=== PATIENT | female | born 1960 | race Two or more races ===

== ENCOUNTER 2024-12-19 10:56 | Outpatient (AMB) | payer MEDICAID, SELFPAY ==
--- NOTE | 2024-12-19 11:12 | PD.ORTHCLVIS ---
Vital signs 12/19/24 11:15 Height 1.68 m Height Method Stated Weight 123.405 kg Weight Measurement Method Standing Scale BMI 43.7 BP 113/69 Blood Pressure Source Automatic Cuff Blood Pressure Location Left Upper Arm Position Sitting Respiration 19 Pulse 78 Pulse Source Monitor Temp 97.4 F Temp Source Temporal Artery Scan Pulse Oximetry (%) 94 L Oxygen Delivery Method Room Air Med/Allergies Allergies & Medications Allergies No Known Allergies Allergy (Verified 12/19/24 11:16) Medication Reconciliation atorvastatin 20 mg tablet 20 mg PO QDAY 09/22/22 [History Confirmed 12/19/24] carvedilol 3.125 mg tablet (Coreg) 3.125 mg PO BID 09/22/22 [History Confirmed 12/19/24] cholecalciferol (vitamin D3) 50 mcg (2,000 unit) tablet (Vitamin D3) 50 mcg PO QDAY 09/22/22 [History Confirmed 12/19/24] gabapentin 300 mg capsule 300 mg PO QDAY 09/22/22 [History Confirmed 12/19/24] isosorbide mononitrate 10 mg tablet 10 mg PO DAILY 09/22/22 [History Confirmed 12/19/24] losartan 100 mg tablet 100 mg PO QDAY 09/22/22 [History Confirmed 12/19/24] meloxicam 15 mg tablet 15 mg PO QDAY 09/22/22 [History Confirmed 12/19/24] Exam Exam Patient is in no acute distress and is cooperative with the examination today. Patient has a normal mood and affect. Breathing is nonlabored. In no respiratory distress. Bilateral extremities were evaluated and demonstrates sensation intact to light touch. Palpable pedal pulses are present. No significant edema is present. Right knee incision is clean dry intact. Range of motion 0 to 110 degrees. Her left knee is tender to palpation medially. Range of motion 0 to 105 degrees. Knee feels stable varus valgus stress as well as AP translation. There is marked varus deformity X-rays demonstrate a cemented right total knee replacement in good alignment and position. The left knee demonstrates [id number] arthritis with complete joint space obliteration and varus deformity. Assessment and Plan Problem List (1) History of total right knee replacement: Status: Acute (2) Arthritis of left knee: Status: Acute Plan Patient is a [id number] female with bilateral knee pain with zitc-[id number] arthritis on the left. She has failed conservative treatment. We discussed total knee replacement is a reasonable option. He has tried injections, anti-inflammatories, and physical therapy. She has tried to lose weight and her weight is stable. She is done well with the last knee replacement The nature and purpose of the total knee replacement, alternative method(s) of treatment, the material risks involved, and the possibility of complications were fully explained to the patient. The patient does NOT have any of the following contraindications to TKA: - Active infection of the knee joint, OR - Active systemic bacteremia, OR - Active skin infection or open wound at surgical site, OR - Neuropathic arthritis, OR - Severe, rapidly progressive neurological disease, OR - Severe medical condition that makes risks of surgery outweigh the potential benefit The patient was told the most common risks and complications associated with a total knee replacement include, but are not limited to: blood clots in the leg, fatal pulmonary embolism, dislocation of the prosthesis, intraoperative and postoperative fractures of the femur or tibia, infection, failure of the prosthesis or grafting materials, complications from anesthesia, reactions to blood transfusions, postoperative leg length inequality, instability of the knee replacement, nerve damage or injury, vascular injury, delayed wound healing, infection, other injury or even . In addition, there are risks associated with anesthesia given during this operation. Also, the patient was told that after undergoing a total knee replacement there may still be persistent pain or disability. The patient was informed that the success of this operation in part depends upon the mechanical devices which are going to be implanted and that these devices can fail or malfunction, and may need to be repaired or replaced and there are no guarantees as to the longevity of this device or its parts and that it or its parts could fail prematurely. The patient was also notified that during the course of surgery, there may be a need to use bone graft from donors, and that any bone graft used will be carefully screened for communicable diseases, including AIDS, hepatitis, Ty-Creutzfeldt, or other diseases, but despite the screening procedures, there is a small chance that they could contract one of these diseases. Finally, the patient was asked to follow completely and fully with all advice and recommended treatments, and that recovery and ultimate outcome are affected by their compliance with recommended treatment. We discussed the risks, benefits and treatment alternatives, and the patient is interested in proceeding with surgery. We will try to set this up as expeditiously as possible. Office Procedures GNS Level of Care Nursing/Assessment Patient Status: Established Patient Nursing Assessment/Reassesment: Medication Reconciliation, Update PMH in EMR and Vital Signs Coordination of Care: Complex Care and Chronic Disease 1-5, Education Complex Pt/Fam, Consent,records obtained, informed consent, Results/Orders obtained and Staff clarify orders Special Needs: Language special needs Established Patient Charge Established Patient Point Assignment: 95 Established Patient Point Charge: EP Level 3 (80-115) MA Intake Visit Data Collection New Patient or Established: Established Patient (seen at [facility] within 3 years) Reason for Visit:: REQ LEFT KNEE SX Seen by Clinical Staff ONLY (RN/MA): 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 PCP or OBGYN visit in last 3 months: Yes Hx Now: No Do You Feel Safe at Home: Yes Authorities Contacted: N/A Questionairres Past Medical History Past Medical History Have you ever been diagnosed with any of the following: Neurological Problems Seizures: No Cardiology Problems Congestive Heart Failure: No Hypertension: Yes Hypotension: Yes Respiratory Problems Chronic Obstructive Pulmonary Disease (COPD): No Smoking: No Smoking Exposure: No Genital/Urinary Problems Renal Disease: No Reproductive Problems Previous Pregnancies: Yes Musculoskeletal Problems Arthritis: Yes (knee) Endocrine Problems Diabetes Mellitus Type 1: No Diabetes Mellitus Type 2: No Other Problems Blood Transfusions: No Blood Transfusion Reaction: No Anesthesia Reactions: No MRSA: No Clostridium Difficile: No Cancer: No Subjective Visit Visit for: follow up visit and knee Immunization / Flu Flu Vaccine in the Last 12 Months: No Flu Vaccine Exclusion Criteria: No Exclusion Criteria History of Present Illness Chief complaint: Left knee pain Susan is a pleasant 63-year-old female with a prior right total knee replacement with significant left knee pain. This been ongoing for several years. We recently set her up for surgery but she had to go to [place] for prolonged period of time. She is now back. She has had multiple injections in her left knee as well as Anti-inflammatories and physical therapy. She reports the left knee pain is affecting her quality life and happiness. She has failed conservative treatment at this point Pain Pain level (0-10): 5 Pain duration: COMES AND GOES Pain location: inside (medial), outside (lateral), anterior and posterior Pain quality: dull and aching Pain timing: increases with activity Associated signs & symptoms: none Ambulatory data Ambulatory device: none Treatments Improvement with previous injections: No Improvement with PT: No Improvement with NSAIDS: no Review of Systems Review of Systems: All systems negative unless otherwise noted in HPI.
[2024-12-19 11:15] VITALS: BP 113/69; PULSE 78; RESP 19; TEMP 36.3; O2SAT 94; BMI 43.7
== END 2024-12-19 11:31 | disposition home or self-care (01) ==
LOC: HODSRG 10:56
PROVIDERS: Supervising Provider Orthopaedic Surgery Adult Reconstructive Orthopaedic Surgery; Visit Provider Orthopaedic Surgery Adult Reconstructive Orthopaedic Surgery
DX: Z96.651 Presence of right artificial knee joint (principal); M17.12 Unilateral primary osteoarthritis, left knee; M25.562 Pain in left knee; M25.561 Pain in right knee; I10 Essential (primary) hypertension
CPT/HCPCS: 99213; G0463

== ENCOUNTER 2025-03-01 08:58 | Outpatient (AMB) | payer MEDICAID, SELFPAY ==
--- NOTE | 2025-03-01 09:04 | ORTHONT_ITS ---
Vital signs 03/01/25 09:31 Height 1.68 m Height Method Measured Weight 116.63 kg Weight Measurement Method Standing Scale BMI 41.3 BP 128/70 Blood Pressure Source Automatic Cuff Blood Pressure Location Left Upper Arm Position Sitting Respiration 18 Pulse 71 Pulse Source Monitor Temp 97.9 F Temp Source Temporal Artery Scan Pulse Oximetry (%) 97 Oxygen Delivery Method Room Air Med/Allergies Allergies & Medications Allergies No Known Allergies Allergy (Verified 03/01/25 09:38) Medication Reconciliation atorvastatin 20 mg tablet 20 mg PO QDAY 09/22/22 [History Confirmed 03/01/25] carvedilol 3.125 mg tablet (Coreg) 3.125 mg PO BID 09/22/22 [History Confirmed 03/01/25] cholecalciferol (vitamin D3) 50 mcg (2,000 unit) tablet (Vitamin D3) 50 mcg PO QDAY 09/22/22 [History Confirmed 03/01/25] gabapentin 300 mg capsule 300 mg PO QDAY 09/22/22 [History Confirmed 03/01/25] isosorbide mononitrate 10 mg tablet 10 mg PO DAILY 09/22/22 [History Confirmed 03/01/25] losartan 100 mg tablet 100 mg PO QDAY 09/22/22 [History Confirmed 03/01/25] meloxicam 15 mg tablet 15 mg PO QDAY 09/22/22 [History Confirmed 03/01/25] Exam Exam Patient is in no acute distress and is cooperative with the examination today. Patient has a normal mood and affect. Breathing is nonlabored. In no respiratory distress. Bilateral extremities were evaluated and demonstrates sensation intact to light touch. Palpable pedal pulses are present. No significant edema is present. Right knee incision is clean dry intact. Range of motion 0 to 110 degrees. Her left knee is tender to palpation medially. Range of motion 0 to 105 degrees. Knee feels stable varus valgus stress as well as AP translation. There is marked varus deformity X-rays demonstrate a cemented right total knee replacement in good alignment and position. The left knee demonstrates zwbb-ga-[id number] arthritis with complete joint space obliteration and varus deformity. Assessment and Plan Problem List (1) History of total right knee replacement: Status: Acute (2) Arthritis of left knee: Status: Acute Plan Patient is a [id number] female with bilateral knee pain with cdkv-pj-[id number] arthritis on the left. She has failed conservative treatment. We discussed total knee replacement is a reasonable option. He has tried injections, anti-inflammatories, and physical therapy. She has done well with the last knee replacement. She has lost 15 pounds since we last saw her. The nature and purpose of the total knee replacement, alternative method(s) of treatment, the material risks involved, and the possibility of complications were fully explained to the patient. The patient does NOT have any of the following contraindications to TKA: - Active infection of the knee joint, OR - Active systemic bacteremia, OR - Active skin infection or open wound at surgical site, OR - Neuropathic arthritis, OR - Severe, rapidly progressive neurological disease, OR - Severe medical condition that makes risks of surgery outweigh the potential benefit The patient was told the most common risks and complications associated with a total knee replacement include, but are not limited to: blood clots in the leg, fatal pulmonary embolism, dislocation of the prosthesis, intraoperative and postoperative fractures of the femur or tibia, infection, failure of the prosthesis or grafting materials, complications from anesthesia, reactions to blood transfusions, postoperative leg length inequality, instability of the knee replacement, nerve damage or injury, vascular injury, delayed wound healing, infection, other injury or even . In addition, there are risks associated with anesthesia given during this operation. Also, the patient was told that after undergoing a total knee replacement there may still be persistent pain or disability. The patient was informed that the success of this operation in part depends upon the mechanical devices which are going to be implanted and that these devices can fail or malfunction, and may need to be repaired or replaced and there are no guarantees as to the longevity of this device or its parts and that it or its parts could fail prematurely. The patient was also notified that during the course of surgery, there may be a need to use bone graft from donors, and that any bone graft used will be carefully screened for communicable diseases, including AIDS, hepatitis, Ty-Creutzfeldt, or other diseases, but despite the screening procedures, there is a small chance that they could contract one of these diseases. Finally, the patient was asked to follow completely and fully with all advice and recommended treatments, and that recovery and ultimate outcome are affected by their compliance with recommended treatment. We discussed the risks, benefits and treatment alternatives, and the patient is interested in proceeding with surgery. We will try to set this up as expeditiously as possible. Office Procedures GNS Level of Care Nursing/Assessment Patient Status: Established Patient Nursing Assessment/Reassesment: Medication Reconciliation, Update PMH in EMR and Vital Signs Coordination of Care: Complex Care and Chronic Disease 1-5, Education Complex Pt/Fam, Consent,records obtained, informed consent, Lab and Imaging orders, Results/Orders obtained and Staff clarify orders Special Needs: Language special needs Established Patient Charge Established Patient Point Assignment: 110 Established Patient Point Charge: EP Level 3 (80-115) MA Intake Visit Data Collection New Patient or Established: Established Patient (seen at [facility] within 3 years) Reason for Visit:: REQ LEFT KNEE SX Seen by Clinical Staff ONLY (RN/MA): No 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 PCP or OBGYN visit in last 3 months: Yes Hx Now: No Do You Feel Safe at Home: Yes Authorities Contacted: N/A Questionairres Past Medical History Past Medical History Have you ever been diagnosed with any of the following: Neurological Problems Seizures: No Cardiology Problems Congestive Heart Failure: No Hypertension: Yes Hypotension: Yes Respiratory Problems Chronic Obstructive Pulmonary Disease (COPD): No Smoking: No Smoking Exposure: No Genital/Urinary Problems Renal Disease: No Reproductive Problems Previous Pregnancies: Yes Musculoskeletal Problems Arthritis: Yes (knee) Endocrine Problems Diabetes Mellitus Type 1: No Diabetes Mellitus Type 2: No Other Problems Blood Transfusions: No Blood Transfusion Reaction: No Anesthesia Reactions: No MRSA: No Clostridium Difficile: No Cancer: No Subjective Visit Visit for: follow up visit and knee Immunization / Flu Flu Vaccine in the Last 12 Months: No Flu Vaccine Exclusion Criteria: No Exclusion Criteria History of Present Illness Chief complaint: Left knee pain Susan is a pleasant 63-year-old female with a prior right total knee replacement with significant left knee pain. This been ongoing for several years. We recently set her up for surgery but she had to go to [place] for prolonged period of time. She is now back. She has had multiple injections in her left knee as well as Anti-inflammatories and physical therapy. She reports the left knee pain is affecting her quality life and happiness. She has failed conservative treatment at this point Pain Pain level (0-10): 5 Pain duration: COMES AND GOES Pain location: inside (medial), outside (lateral), anterior and posterior Pain quality: dull and aching Pain timing: increases with activity Associated signs & symptoms: none Ambulatory data Ambulatory device: none Treatments Improvement with previous injections: No Improvement with PT: No Improvement with NSAIDS: no Review of Systems Review of Systems: All systems negative unless otherwise noted in HPI.
[2025-03-01 09:31] VITALS: BP 128/70; PULSE 71; RESP 18; TEMP 36.6; O2SAT 97; BMI 41.3
--- NOTE | 2025-03-01 09:33 | XR_ITS ---
Examination: Bilateral knees 2 views Right lateral knee left lateral knee 2 views Bilateral axial knees single view TECHNIQUE: Bilateral AP knees standing single view, bilateral PA knees standing flexion single view Standing right lateral knee left lateral knee 2 views Bilateral axial knees single view total 5 views Date and time: March 01, 2025 1006 hours INDICATIONS: Bilateral knee pain 10 years. LUNGS: Moderate osteopenia. Total right knee arthroplasty. Satisfactory alignment. No loosening of the prosthetic components. Advanced left knee tricompartment osteoarthritis including severe narrowing medial joint space and severe osteoarthritis patellofemoral joint IMPRESSION: Advanced left knee tricompartment osteoarthritis including severe narrowing medial joint space
== END 2025-03-01 09:39 | disposition home or self-care (01) ==
LOC: HODSRG 08:58
PROVIDERS: Supervising Provider Orthopaedic Surgery Adult Reconstructive Orthopaedic Surgery; Visit Provider Orthopaedic Surgery Adult Reconstructive Orthopaedic Surgery
DX: M17.12 Unilateral primary osteoarthritis, left knee (principal); Z96.651 Presence of right artificial knee joint; M25.562 Pain in left knee
CPT/HCPCS: 73564; 99213; G0463

== ENCOUNTER 2025-03-22 13:57 | Outpatient (AMB) | payer MEDICAID, SELFPAY ==
--- NOTE | 2025-03-22 14:07 | PD.ORTHCLVIS ---
Vital signs 03/22/25 14:09 Height 1.68 m Height Method Measured Weight 114.901 kg Weight Measurement Method Standing Scale BMI 40.7 BP 134/80 H Blood Pressure Source Automatic Cuff Blood Pressure Location Left Upper Arm Position Sitting Respiration 18 Pulse 70 Pulse Source Monitor Temp 97.5 F Temp Source Temporal Artery Scan Pulse Oximetry (%) 96 Oxygen Delivery Method Room Air Med/Allergies Allergies & Medications Allergies No Known Allergies Allergy (Verified 03/22/25 14:09) Medication Reconciliation atorvastatin 20 mg tablet 20 mg PO QDAY 09/22/22 [History Confirmed 03/22/25] carvedilol 3.125 mg tablet (Coreg) 3.125 mg PO BID 09/22/22 [History Confirmed 03/22/25] cholecalciferol (vitamin D3) 50 mcg (2,000 unit) tablet (Vitamin D3) 50 mcg PO QDAY 09/22/22 [History Confirmed 03/22/25] gabapentin 300 mg capsule 300 mg PO QDAY 09/22/22 [History Confirmed 03/22/25] isosorbide mononitrate 10 mg tablet 10 mg PO DAILY 09/22/22 [History Confirmed 03/22/25] losartan 100 mg tablet 100 mg PO QDAY 09/22/22 [History Confirmed 03/22/25] meloxicam 15 mg tablet 15 mg PO QDAY 09/22/22 [History Confirmed 03/22/25] Exam Exam Patient is in no acute distress and is cooperative with the examination today. Patient has a normal mood and affect. Breathing is nonlabored. In no respiratory distress. Bilateral extremities were evaluated and demonstrates sensation intact to light touch. Palpable pedal pulses are present. No significant edema is present. Right knee incision is clean dry intact. Range of motion 0 to 110 degrees. Her left knee is tender to palpation medially. Range of motion 0 to 105 degrees. Knee feels stable varus valgus stress as well as AP translation. There is marked varus deformity X-rays demonstrate a cemented right total knee replacement in good alignment and position. The left knee demonstrates gfoa-fg-ulsu arthritis with complete joint space obliteration and varus deformity. Assessment and Plan Problem List (1) History of total right knee replacement: Status: Acute (2) Arthritis of left knee: Status: Acute Plan Patient is a -zdeh-fuu female with bilateral knee pain with jvjw-nj-wjeh arthritis on the left. She has failed conservative treatment. We discussed total knee replacement is a reasonable option. He has tried injections, anti-inflammatories, and physical therapy. She has done well with the last knee replacement. She has lost 15 pounds since we last saw her. The nature and purpose of the total knee replacement, alternative method(s) of treatment, the material risks involved, and the possibility of complications were fully explained to the patient. The patient does NOT have any of the following contraindications to TKA: - Active infection of the knee joint, OR - Active systemic bacteremia, OR - Active skin infection or open wound at surgical site, OR - Neuropathic arthritis, OR - Severe, rapidly progressive neurological disease, OR - Severe medical condition that makes risks of surgery outweigh the potential benefit The patient was told the most common risks and complications associated with a total knee replacement include, but are not limited to: blood clots in the leg, fatal pulmonary embolism, dislocation of the prosthesis, intraoperative and postoperative fractures of the femur or tibia, infection, failure of the prosthesis or grafting materials, complications from anesthesia, reactions to blood transfusions, postoperative leg length inequality, instability of the knee replacement, nerve damage or injury, vascular injury, delayed wound healing, infection, other injury or even . In addition, there are risks associated with anesthesia given during this operation. Also, the patient was told that after undergoing a total knee replacement there may still be persistent pain or disability. The patient was informed that the success of this operation in part depends upon the mechanical devices which are going to be implanted and that these devices can fail or malfunction, and may need to be repaired or replaced and there are no guarantees as to the longevity of this device or its parts and that it or its parts could fail prematurely. The patient was also notified that during the course of surgery, there may be a need to use bone graft from donors, and that any bone graft used will be carefully screened for communicable diseases, including AIDS, hepatitis, Ty-Creutzfeldt, or other diseases, but despite the screening procedures, there is a small chance that they could contract one of these diseases. Finally, the patient was asked to follow completely and fully with all advice and recommended treatments, and that recovery and ultimate outcome are affected by their compliance with recommended treatment. We discussed the risks, benefits and treatment alternatives, and the patient is interested in proceeding with surgery. We will try to set this up as expeditiously as possible. Office Procedures GNS Level of Care Nursing/Assessment Patient Status: Established Patient Nursing Assessment/Reassesment: Medication Reconciliation, Update PMH in EMR and Vital Signs Coordination of Care: Complex Care and Chronic Disease 1-5, Education Complex Pt/Fam, Consent,records obtained, informed consent, Results/Orders obtained and Staff clarify orders Established Patient Charge Established Patient Point Assignment: 95 Established Patient Point Charge: EP Level 3 (80-115) MA Intake Visit Data Collection New Patient or Established: Established Patient (seen at [facility] within 3 years) Reason for Visit:: PRE OP LEFT TKA Seen by Clinical Staff ONLY (RN/MA): No Employee Relations Consultant Required: No PCP or OBGYN visit in last 3 months: Yes Hx Now: No Do You Feel Safe at Home: Yes Authorities Contacted: N/A Questionairres Past Medical History Past Medical History Have you ever been diagnosed with any of the following: Neurological Problems Seizures: No Cardiology Problems Congestive Heart Failure: No Hypertension: Yes Hypotension: Yes Respiratory Problems Chronic Obstructive Pulmonary Disease (COPD): No Smoking: No Smoking Exposure: No Genital/Urinary Problems Renal Disease: No Reproductive Problems Previous Pregnancies: Yes Musculoskeletal Problems Arthritis: Yes (knee) Endocrine Problems Diabetes Mellitus Type 1: No Diabetes Mellitus Type 2: No Other Problems Blood Transfusions: No Blood Transfusion Reaction: No Anesthesia Reactions: No MRSA: No Clostridium Difficile: No Cancer: No Subjective Visit Visit for: follow up visit and knee Immunization / Flu Flu Vaccine in the Last 12 Months: No Flu Vaccine Exclusion Criteria: No Exclusion Criteria History of Present Illness Chief complaint: Left knee pain Susan is a pleasant 63-year-old female with a prior right total knee replacement with significant left knee pain. This been ongoing for several years. We recently set her up for surgery but she had to go to [place] for prolonged period of time. She is now back. She has had multiple injections in her left knee as well as Anti-inflammatories and physical therapy. She reports the left knee pain is affecting her quality life and happiness. She has failed conservative treatment at this point Personal History Red flag PMH: none BMI Counceling provided: Yes Pain Pain level (0-10): 8 Pain duration: COMES AND GOES Pain location: inside (medial), outside (lateral), anterior and posterior Pain quality: dull and aching Pain timing: increases with activity Associated signs & symptoms: none Ambulatory data Ambulatory device: none Treatments Improvement with previous injections: No Improvement with PT: No Improvement with NSAIDS: no Review of Systems Review of Systems: All systems negative unless otherwise noted in HPI.
[2025-03-22 14:09] VITALS: BP 134/80; PULSE 70; RESP 18; TEMP 36.4; O2SAT 96; BMI 40.7
== END 2025-03-22 14:38 | disposition home or self-care (01) ==
LOC: HODSRG 13:57
PROVIDERS: PCP Nurse Practitioner Family; Referring Provider Nurse Practitioner Family; Supervising Provider Orthopaedic Surgery Adult Reconstructive Orthopaedic Surgery; Visit Provider Orthopaedic Surgery Adult Reconstructive Orthopaedic Surgery
DX: Z96.651 Presence of right artificial knee joint (principal); M17.12 Unilateral primary osteoarthritis, left knee; M25.562 Pain in left knee; I10 Essential (primary) hypertension
CPT/HCPCS: 99213; G0463

== ENCOUNTER → 2025-03-22 | Outpatient (CLI) | payer MEDICAID, SELFPAY ==
--- NOTE | 2025-03-22 13:00 | XR_ITS ---
Examination: CT left lower extremity, without contrast. 2-D sagittal reconstructions. 2-D coronal reconstructions. 3-D reconstructions. Date and time of exam:March 22, 2025 1534 hours INDICATIONS: Diagnosis unilateral primary osteoarthritis left knee, left knee pain 10 years CTDI: vol (mGy):13.9 DLP: (mGycm):1053 Technique: Multiple 1.25 mm axial sections of the left lower extremity without intravenous contrast have been obtained. 2-D sagittal and coronal reconstructions have been obtained. 3-D reconstructions have been obtained. Low dose protocols were performed. One or more of the following dose reduction techniques were used; automated exposure control, adjustment of the mA and/or KV according to patient size, use of iterative reconstruction technique. Findings: Severe osteopenia Moderate narrowing left hip joint No left hip fracture or dislocation Severe left knee tricompartment osteoarthritis No fractures No avascular necrosis IMPRESSION: Severe left knee tricompartment osteoarthritis
== END | disposition home or self-care (01) ==
LOC: CCTX 13:17
PROVIDERS: PCP Family Medicine; Referring Provider Orthopaedic Surgery Adult Reconstructive Orthopaedic Surgery; Visit Provider Orthopaedic Surgery Adult Reconstructive Orthopaedic Surgery
DX: M17.12 Unilateral primary osteoarthritis, left knee (principal)
CPT/HCPCS: 73700

== ENCOUNTER 2025-04-09 05:45 | Day surgery (SDC) | payer MEDICAID, SELFPAY ==
--- NOTE | 2025-04-04 06:00 | EKG_ITS ---
[facility] Test Date: 2025-04-04 Pat Name: LEIGHTON LEMOS Department: Room: - Gender: Female Outsole Splicer: FRANCOIS : 1960 Requested By: Jourdan Scott Order Number: [id number] Reading MD: Jourdan Scott Measurements Intervals [place] Rate: 60 P: 19 NH: 168 QRS: -4 QRSD: 90 T: 17 QT: 422 QTc: 423 Interpretive Statements SINUS RHYTHM LOW QRS VOLTAGE IN PRECORDIAL LEADS [QRS DEFLECTION < 1.0 mV IN CHEST LEADS] Compared to ECG 09/22/2022 09:38:49 No significant changes /store/S0/[id number]/[id number].pdf
[2025-04-04 07:41] VITALS: BMI 39.9
[2025-04-04 09:01] LABS: Basophils # (Auto) 0.0 Thou/mm3 (0.0-0.2); Basophils % (Auto) 1 % (0-2.5); Eosinophils # (Auto) 0.3 Thou/mm3 (0.0-0.5); Eosinophils % (Auto) 4 % (0-10); Hematocrit 42.5 % (36.0-46.0); Hemoglobin 14.1 g/dL (12.0-16.0); Immature Granulocytes Auto 0.01 Thou/mm3 (0.00-0.00); Lymphocytes # (Auto) 2.3 Thou/mm3 (1.0-4.8); Lymphocytes % (Auto) 37 % (10-50); Mean Corpuscular HGB Conc 33.2 g/dl (31.0-37.0); Mean Corpuscular Hemoglobin 29.8 pg (25.0-35.0); Mean Corpuscular Volume 90 fL (80-100); Monocytes # (Auto) 0.5 Thou/mm3 (0.0-0.8); Monocytes % (Auto) 7 % (0-12); Neutrophils # (Auto) 3.2 Thou/mm3 (1.8-7.7); Neutrophils % (Auto) 51 % (37-80); Nucleated Red Blood Cell # 0.00 Thou/mm3 (0.00-0.00); Nucleated Red Blood Cell % 0 /100 WBC (0); Platelet Count 228 Thou/mm3 (140-440); RDW Standard Deviation 42.1 fL (36.4-46.3); Red Blood Count 4.73 Miln/mm3 (4.00-5.20); White Blood Count 6.2 Thou/mm3 (3.6-11.0)
[2025-04-04 09:14] LABS: INR 1.0 (0.9-1.3); Partial Thromboplastin Time 27.3 Seconds (22.0-36.0); Prothrombin Time 11.4 Seconds (9.0-12.2)
[2025-04-04 09:19] LABS: Alanine Aminotransferase 25 U/L (10-49); Albumin, Serum 4.2 gm/dL (3.4-4.8); Albumin/Globulin Ratio 1.6 (1.2-2.2); Alkaline Phosphatase 91 U/L (46-116); Anion Gap 9 (7-16); Aspartate Amino Transferase 20 U/L (0-34); BUN/Creatinine Ratio 15 Ratio (12-20); Bilirubin,Total 0.9 mg/dL (0.3-1.2); Blood Urea Nitrogen 12 mg/dL (9-23); Calcium 9.9 mg/dL (8.3-10.6); Calcium (Corrected) 9.9 mg/dL (8.5-10.1); Carbon Dioxide 28.0 mMol/L (20.0-31.0); Chloride 108 mMol/L (98-107); Creatinine (Component) 0.8 mg/dL (0.6-1.3); Estimated Creatinine Clearance 93.4 mL/min (>60); Globulin 2.7 gm/dL (2.3-3.5); Glucose 109 mg/dL (74-106); Osmolality,Calculated 289 (275-295); Potassium 4.2 mMol/L (3.4-5.1); Sodium 145 mMol/L (136-145); Total Protein 6.9 gm/dL (5.7-8.2); eGFR > 60 See Note
[2025-04-09] VITALS (14 sets, daily range): BP systolic 121–159; BP diastolic 68–92; PULSE 56–88; RESP 13–20; TEMP 36.1–36.7; O2SAT 95–100; BMI 40.1
[2025-04-09] MEDS: MELOXICAM 7.5 MG TABLET PO (06:18)
[2025-04-09] MEDS: PREGABALIN 75 MG CAPSULE PO (06:19)
[2025-04-09] MEDS: ACETAMINOPHEN 325 MG TABLET 650 MG PO (06:19)
[2025-04-09] MEDS: RINGERS LACTATED 1000 ML 1,000 ML 20 ML IV (06:20)
--- NOTE | 2025-04-09 07:21 | SUR.PREOP ---
Patient expressed gratitude for prayer before their procedure.
--- NOTE | 2025-04-09 09:47 | PD.SUROPNT ---
Date of Procedure 04/09/25 Pre Op Diagnosis left knee osteoarthritis Post Op Diagnosis left knee osteoarthritis Procedure left total knee replacement scott Findings full thickness cartilage loss and osteophytes Procedure Description Indication: The patient is a [68] year old who has a long history of left knee pain. X-rays show degenerative arthritis involving the knee. Over the past several years the patient has had increasing pain, progressive limitation in function. He has failed conservative measures including activity modification, physical therapy, injections, anti-inflammatories, and assistive devices. After a lengthy discussion of the risks and benefits, the patient presents now for total knee replacement. The nature and purpose of the total knee replacement, alternative method(s) of treatment, the material risks involved, and the possibility of complications were fully explained to the patient. The patient was told the most common risks and complications associated with a total knee replacement include, but are not limited to blood clots in the leg, fatal pulmonary embolism, dislocation of the prosthesis, intraoperative and postoperative fractures of the femur or tibia, infection, failure of the prosthesis or grafting materials, complications from anesthesia, reactions to blood transfusions, postoperative leg length inequality, instability of the knee replacement, nerve damage or injury, vascular injury, delayed wound healing, infections, other injury or even . In addition, there are risks associated with anesthesia given during this operation, temporary or permanent numbness on the skin lateral to the incision can be a complication unique to total knee surgery, and kneeling can be painful after knee replacement surgery. Also, the patient was told that after undergoing a total knee replacement there may still be pain or disability. We discussed with the patient that we will be using a robot-assisted technology. We discussed that there is a possibility of converting to manual instrumentation. We also discussed that she is at risk of arthrofibroisis as her preop range of motion is 20-70 degrees. The patient was informed that the success of this operation in part depends upon the mechanical devices which are going to be implanted and that these devices can fail or malfunction, and may need to be repaired or replaced and there are no guarantees as to the longevity of this device or its part and that it or its parts could fail prematurely. Finally, the patient was asked to follow completely and fully with all advice and recommended treatments, and that recovery and ultimate outcome are affected by their compliance with recommended treatment. Surgical technique: Patient was marked and consented in the pre-operative area. The patient was brought to the operating room and placed on the operating table in a supine position. Prior to positioning, a timeout procedure was performed between the surgeon, the anesthesiologist, and the nursing staff where the patient and the operative side were identified and confirmed. After adequate general anesthetic was obtained, the left lower extremity was prepped and draped in the usual sterile fashion. A weight based dose of Cefazolin were administered within 1 hour prior to incision. The robot was preregistered and calibrated before the incision. The extremity was exsanguinated with an esmarch badge and tourniquet inflated to 250mmHg. A midline incision was made. A median parapatellar arthrotomy was made. The patella was subluxed laterally. A medial release was performed to expose the medial tibia. His femoral and tibial pins were placed through an intra incisional manner for both cases. Every effort was made to ensure that the distalmost aspect of the pin was hung in the second cortex. The arrays were then tightened several times to ensure that it was fixed for the remainder of the case. Both femoral and tibial checkpoints were then placed. We then went through the registration process of the bone. We then assessed the knee deformity and attempted to correct it. We also used the robot to aid in judging laxity in both extension and flexion. Final based on laxity and alignment we changed the preoperative assessment to obtain proper proper implant positioning and to correct deformity. Attention was then placed to the tibia. We made a tibial cut using the robot ensuring that both the MCL and the patella tendon were protected with retractors. We then went to the femur and made the posterior cut followed by the anterior cut and the anterior chamfer. The bone was then removed and we made a distal femur cut and a posterior chamfer cut. We verified all cuts. A trial reduction was performed with a size 5 femoral component and a size 4 keeled tibial component. The patella was cut and sized to a 33. The patella tracked centrally, and no lateral retinacular release was necessary. The trial implants were removed. The arrays, pins, and checkpoints were all removed. We performed a verification that all pins were removed. The cut bone surfaces were lavaged. A size 5 left femoral component, a size 4 keeled tibial component, and a size 33 patella were impacted into position. The knee was felt to be well balanced in the sagittal and coronal plane. The final 4x10 mm cruciate-substituting articular insert was impacted into the tibial tray. The knee was brought out to full extension, flexed up to 120 degrees. It was stable to varus and valgus stress and appropriately balanced in flexion and extension. The wounds were copiously irrigated following deflation of tourniquet. The medial retinaculum was reapproximated with #1 vicryl and quill. The subcutaneous tissues were closed with 0 and 2-0 interrupted Vicryl. The skin was closed with 3-0 Monofilament V loc suture. A sterile dressing was applied. The patient was transferred to a bed and brought to recovery in stable condition. The patient tolerated the procedure well. There were no intraoperative complications. Sponge and needle counts were correct times 2. As the attending surgeon, I attest I was present and performed the entire operation. Grafts/Implants Size 5 CR Femur Size 4 Tibia 10mm poly CS 33mm patella Anesthesia GETA Drains none Implants alexandra Pathology / specimen None Pathology comment: none Estimated Blood Loss 150 Condition Stable Disposition same day Surgeon Neil Herrera MD Surgical Staff Operation Date: 04/09/25 07:30 Case Staff Anesthesiologist: Jourdan Scott RNaed trainer: Deborah Barreto
--- NOTE | 2025-04-09 09:50 | XR_ITS ---
Examination: Left knee 2 views Technique one AP lateral left knee 2 views Date and time: April 09, 2025, 1147 hours INDICATIONS: Postop knee replacement. FINDINGS: Total left knee arthroplasty. Satisfactory alignment No fracture IMPRESSION: Total left knee arthroplasty with satisfactory alignment.
--- NOTE | 2025-04-09 10:23 | SUR.PHASEI ---
1023 Patient arrived to recovery resting comfortably in [facility], drowsy and able to arouse with verbal prompting, on oxygen 4 via nasal cannula, breathing unlabored, vital signs stable, denies pain, dressing intact to left knee; prineo, telfa, abd, webril, gilberto wraps, no bleeding noted, bilateral dorsalis pedis present when palpated, patient has good circulation to left lower extremity; skin color normal for patient and warm to touch, report received from Dr. Scott and Yola HELM
[2025-04-09] MEDS: fentaNYL CIT INJ 50 mCg/ML AMP 2ML IVP (10:41)
--- NOTE | 2025-04-09 10:43 | SUR.PHASEI ---
1043 Dr. Scott at bedside, patient experiencing pain, verbal order read-back received from Oxycodone IR 5mg oral tab x1 for pain, will enter order into EMR and administer per MD order
[2025-04-09] MEDS: oxyCODONE HCL 5 MG IR TAB PO (11:00)
--- NOTE | 2025-04-09 11:15 | SUR.PHASEII ---
1115 patients daughter at bedside with patient
--- NOTE | 2025-04-09 12:10 | SUR.PHASEII ---
pt awake, alert, able to follow commands, breathing unlabored, dressing to left lower extremity clean, dry, and intact, pt disconnected from monitors to work with physical therapy, Codey PT at bedside, report from Vanessa Talamantes RN
[2025-04-09] MEDS: ONDANSETRON INJ 2 MG/ML INJ 2 ML 4 MG IVP (12:29)
--- NOTE | 2025-04-09 12:34 | SUR.PHASEII ---
pt returned to [facility], VS stable, pt ok to proceed with discharge from physical therapy standpoint per Stephen CHRIS
--- NOTE | 2025-04-09 12:40 | SUR.PHASEII ---
daughter at bedside to help pt with clothing and shoes
--- NOTE | 2025-04-09 12:45 | SUR.PHASEII ---
report to Vanessa Talamantes RN
--- NOTE | 2025-04-09 13:33 | SUR.PHASEII ---
1333 Patient meets discharge criteria from recovery, awake and alert, breathing unlabored, vital signs stable, per patient her pain is tolerable, dressing intact; no bleeding noted, denies pain, voided in the restroom prior to discharge, discharge instructions given to patient and patients daughter with the assistance of the hospital compounding technician Lindsay, daughter signed discharge instructions. Patient given all her belongings prior to discharge, transported via wheelchair and left in a private vehicle.
--- NOTE | 2025-04-14 09:59 | ESPR_ITS ---
Documentation for date of: 04/14/25 POST ANESTHESIA NOTE: Patient had GETA and L adductor canal block after attempted but aborted spinal for L TKA on 04/09/25. I just called and spoke with her on the phone via conference interpreter and she reported having PONV post op but otherwise denied any problems from anesthesia. I educated her again, as I did pre-op, that PONV is common and that she should discuss that with her further anesthesia provider should she need surgery. She asked about her foot and I instructed her to discuss any post op foot problem with her surgeon or her PCP. She had no further questions for me. Jourdan Scott MD Anesthesia Progress Note Progress Note Most recent Vital Signs: Last Vital Signs Temp 97.5 F 04/09/25 13:04 Pulse 63 04/09/25 13:19 Resp 17 04/09/25 13:19 BP 159/87 H 04/09/25 13:19 Pulse Ox 95 04/09/25 13:19 O2 Flow Rate 2 04/09/25 10:53
== END 2025-04-09 13:33 | disposition home or self-care (01) ==
PROVIDERS: Anesthesiology; PCP Nurse Practitioner Family; Referring Provider Orthopaedic Surgery Adult Reconstructive Orthopaedic Surgery; Visit Provider Orthopaedic Surgery Adult Reconstructive Orthopaedic Surgery
PROC: (CPT 27447; principal; 2025-04-09 07:30)
DX: M17.12 Unilateral primary osteoarthritis, left knee (principal); M25.762 Osteophyte, left knee; Z01.810 Encounter for preprocedural cardiovascular examination
CPT/HCPCS: 27447; 20985; 36415; 73560; 80053; 85025; 85610; 85730; 93005; 97162; A4217; A4649; C1713; C1776; J0690; J1100; J1171; J2250; J2371; J2405; J2704; J2710; J2795; J3010; J3490; J7120; J7999; A4648; A9270; J1596; J1805

== ENCOUNTER 2025-04-24 11:08 | Outpatient (AMB) | payer MEDICAID, SELFPAY ==
[2025-04-24 11:30] VITALS: BP 124/87; PULSE 88; RESP 19; TEMP 36.4; O2SAT 96; BMI 39.1
--- NOTE | 2025-04-24 11:30 | ORTHONT_ITS ---
Vital signs 04/24/25 11:30 Height 1.7 m Height Method Stated Weight 113.171 kg Weight Measurement Method Standing Scale BMI 39.1 BP 124/87 H Blood Pressure Source Automatic Cuff Blood Pressure Location Left Upper Arm Position Sitting Respiration 19 Pulse 88 Pulse Source Monitor Temp 97.6 F Temp Source Temporal Artery Scan Pulse Oximetry (%) 96 Oxygen Delivery Method Room Air Med/Allergies Allergies & Medications Allergies No Known Allergies Allergy (Verified 04/24/25 11:31) Medication Reconciliation carvedilol 3.125 mg tablet (Coreg) 3.125 mg PO BID 09/22/22 [History Confirmed 04/24/25] cholecalciferol (vitamin D3) 50 mcg (2,000 unit) tablet (Vitamin D3) 50 mcg PO QDAY 09/22/22 [History Confirmed 04/24/25] isosorbide mononitrate 10 mg tablet 10 mg PO DAILY 09/22/22 [History Confirmed 04/24/25] losartan 100 mg tablet 100 mg PO QDAY 09/22/22 [History Confirmed 04/24/25] atorvastatin 40 mg tablet 40 mg PO DAILY 04/04/25 [History Confirmed 04/24/25] omeprazole 20 mg capsule,delayed release 20 mg PO QDAY 04/04/25 [History Confirmed 04/24/25] doxycycline hyclate 100 mg tablet 100 mg PO BID #14 tabs 04/09/25 [Rx Confirmed 04/24/25] gabapentin 300 mg capsule 300 mg PO .qhs #30 caps 04/09/25 [Rx Confirmed 04/24/25] sennosides 8.6 mg-docusate sodium 50 mg tablet (Senna-S) 1 tab-cap PO QDAY #30 tabs 04/09/25 [Rx Confirmed 04/24/25] acetaminophen 500 mg tablet (Acetaminophen Extra Strength) 1,000 mg (2 x 500 mg) PO Q6H PRN pain #90 tabs 04/24/25 [Rx Confirmed 04/24/25] oxycodone 5 mg tablet 5 mg PO Q6H PRN pain #28 tabs 04/24/25 [Rx Confirmed 04/24/25] Exam Exam patient is in no acute distress and is cooperative with the examination today. Breathing is nonlabored. Patient has a normal mood and affect. The patient has a gait that is nonantalgic Bilateral extremities were evaluated and demonstrates sensation intact to light touch. Palpable pedal pulses are present. No significant edema is present. Bilateral hips were examined. The patient has no pain with log roll of the hips. Internal rotation to 30 degrees and external rotation to 30 degrees is painless. Negative FADIR. Left knee incision is clean dry and intact. Knee feels stable varus valgus stress as well as AP translation Assessment and Plan Problem List (1) History of total right knee replacement: Status: Acute (2) Arthritis of left knee: Status: Acute Plan Patient is a pleasant 64-year-old female who is doing well status post total knee replacement. She should transition outpatient physical therapy. We will see her back in approximately 4 weeks for routine follow-up Office Procedures GNS Level of Care Nursing/Assessment Patient Status: Established Patient Nursing Assessment/Reassesment: Medication Reconciliation, Update PMH in EMR and Vital Signs Coordination of Care: Complex Care and Chronic Disease 1-5, Education Complex Pt/Fam, Consent,records obtained, informed consent, Results/Orders obtained and Staff clarify orders Established Patient Charge Established Patient Point Assignment: 95 Established Patient Point Charge: EP Level 3 (80-115) MA Intake Visit Data Collection New Patient or Established: Established Patient (seen at [facility] within 3 years) Reason for Visit:: 2 WEEK POST OP LEFT TKA Seen by Clinical Staff ONLY (RN/MA): No Ad Operations Specialist Required: Yes PCP or OBGYN visit in last 3 months: Yes Hx Now: No Do You Feel Safe at Home: Yes Authorities Contacted: N/A Questionairres Past Medical History Past Medical History Have you ever been diagnosed with any of the following: Neurological Problems Seizures: No Cardiology Problems Congestive Heart Failure: No Hypertension: Yes Hypotension: Yes Varicose Veins: Yes Respiratory Problems Chronic Obstructive Pulmonary Disease (COPD): No Smoking: No Smoking Exposure: No Stomache/Intestinal Problems Obesity: Yes Genital/Urinary Problems Renal Disease: No Reproductive Problems Previous Pregnancies: Yes Musculoskeletal Problems Arthritis: Yes (knee) Endocrine Problems Diabetes Mellitus Type 1: No Diabetes Mellitus Type 2: No Other Problems Shingles: No Blood Transfusions: No Blood Transfusion Reaction: No Anesthesia Reactions: No MRSA: No Clostridium Difficile: No Cancer: No Subjective Visit Visit for: follow up visit, post op #1 and knee (LEFT ) Immunization / Flu Flu Vaccine in the Last 12 Months: No Flu Vaccine Exclusion Criteria: No Exclusion Criteria History of Present Illness Chief complaint: 2 WEEK POST OP L TKA Susan is a pleasant 63-year-old female with a prior right total knee replacement with significant left knee pain. She is doing well 2 weeks postop Personal History Red flag PMH: none BMI Counceling provided: Yes Pain Pain level (0-10): 8 Pain duration: COMES AND GOES Pain location: inside (medial), outside (lateral), anterior and posterior Pain quality: dull and aching Pain timing: increases with activity Associated signs & symptoms: none Ambulatory data Ambulatory device: none Treatments Improvement with previous injections: No Improvement with PT: No Improvement with NSAIDS: no Review of Systems Review of Systems: All systems negative unless otherwise noted in HPI.
== END 2025-04-24 11:32 | disposition home or self-care (01) ==
LOC: HODSRG 11:08
PROVIDERS: PCP Nurse Practitioner Family; Referring Provider Nurse Practitioner Family; Supervising Provider Orthopaedic Surgery Adult Reconstructive Orthopaedic Surgery; Visit Provider Orthopaedic Surgery Adult Reconstructive Orthopaedic Surgery
DX: Z96.651 Presence of right artificial knee joint (principal); M17.12 Unilateral primary osteoarthritis, left knee; I10 Essential (primary) hypertension; M25.562 Pain in left knee
CPT/HCPCS: 99213; G0463

== ENCOUNTER 2025-05-24 11:02 | Outpatient (AMB) | payer MEDICAID, SELFPAY ==
--- NOTE | 2025-05-24 11:19 | PD.ORTHCLVIS ---
Vital signs 05/24/25 11:20 Height 1.7 m Height Method Stated Weight 112.945 kg Weight Measurement Method Standing Scale BMI 39.0 BP 118/73 Blood Pressure Source Automatic Cuff Blood Pressure Location Left Upper Arm Position Sitting Respiration 20 Pulse 71 Pulse Source Monitor Temp 97.1 F Temp Source Temporal Artery Scan Pulse Oximetry (%) 96 Oxygen Delivery Method Room Air Med/Allergies Allergies & Medications Allergies No Known Allergies Allergy (Verified 05/24/25 11:21) Medication Reconciliation carvedilol 3.125 mg tablet (Coreg) 3.125 mg PO BID 09/22/22 [History Confirmed 05/24/25] cholecalciferol (vitamin D3) 50 mcg (2,000 unit) tablet (Vitamin D3) 50 mcg PO QDAY 09/22/22 [History Confirmed 05/24/25] isosorbide mononitrate 10 mg tablet 10 mg PO DAILY 09/22/22 [History Confirmed 05/24/25] losartan 100 mg tablet 100 mg PO QDAY 09/22/22 [History Confirmed 05/24/25] atorvastatin 40 mg tablet 40 mg PO DAILY 04/04/25 [History Confirmed 05/24/25] omeprazole 20 mg capsule,delayed release 20 mg PO QDAY 04/04/25 [History Confirmed 05/24/25] doxycycline hyclate 100 mg tablet 100 mg PO BID #14 tabs 04/09/25 [Rx Confirmed 05/24/25] gabapentin 300 mg capsule 300 mg PO .qhs #30 caps 04/09/25 [Rx Confirmed 05/24/25] sennosides 8.6 mg-docusate sodium 50 mg tablet (Senna-S) 1 tab-cap PO QDAY #30 tabs 04/09/25 [Rx Confirmed 05/24/25] acetaminophen 500 mg tablet (Acetaminophen Extra Strength) 1,000 mg (2 x 500 mg) PO Q6H PRN pain #90 tabs 04/24/25 [Rx Confirmed 05/24/25] oxycodone 5 mg tablet 5 mg PO Q6H PRN pain #28 tabs 04/24/25 [Rx Confirmed 05/24/25] acetaminophen 500 mg tablet (Acetaminophen Extra Strength) 1,000 mg (2 x 500 mg) PO Q6H PRN pain #90 tabs 05/08/25 [Rx Confirmed 05/24/25] naproxen 500 mg tablet 500 mg PO BID #60 tabs 05/24/25 [Rx] Exam Exam patient is in no acute distress and is cooperative with the examination today. Breathing is nonlabored. Patient has a normal mood and affect. The patient has a gait that is nonantalgic Bilateral extremities were evaluated and demonstrates sensation intact to light touch. Palpable pedal pulses are present. No significant edema is present. Bilateral hips were examined. The patient has no pain with log roll of the hips. Internal rotation to 30 degrees and external rotation to 30 degrees is painless. Negative FADIR. Left knee incision is clean dry and intact. Knee feels stable varus valgus stress as well as AP translation. Range of motion is 0 to 100 degrees Assessment and Plan Problem List (1) History of total right knee replacement: Status: Acute Plan: Patient is doing well status post bilateral total knee replacement in a staged fashion. She would like to get more physical therapy. We will see her back in approximately 2 months for routine follow-up with x-rays. Her range of motion is great (2) Arthritis of left knee: Status: Acute Plan Patient is a pleasant 64-year-old female who is doing well status post total knee replacement. She should transition outpatient physical therapy. We will see her back in approximately 4 weeks for routine follow-up Office Procedures GNS Level of Care Nursing/Assessment Patient Status: Established Patient Nursing Assessment/Reassesment: Medication Reconciliation, Update PMH in EMR and Vital Signs Coordination of Care: Complex Care and Chronic Disease 1-5, Education Complex Pt/Fam, Consent,records obtained, informed consent, Results/Orders obtained and Staff clarify orders Established Patient Charge Established Patient Point Assignment: 95 Established Patient Point Charge: EP Level 3 (80-115) MA Intake Visit Data Collection New Patient or Established: Established Patient (seen at [facility] within 3 years) Reason for Visit:: 4 WK TKA L FU Seen by Clinical Staff ONLY (RN/MA): No Supervisor Nutritional Yeast Required: Yes PCP or OBGYN visit in last 3 months: Yes Hx Now: No Do You Feel Safe at Home: Yes Authorities Contacted: N/A Questionairres Past Medical History Past Medical History Have you ever been diagnosed with any of the following: Neurological Problems Seizures: No Cardiology Problems Congestive Heart Failure: No Hypertension: Yes Hypotension: Yes Varicose Veins: Yes Respiratory Problems Chronic Obstructive Pulmonary Disease (COPD): No Smoking: No Smoking Exposure: No Stomache/Intestinal Problems Obesity: Yes Genital/Urinary Problems Renal Disease: No Reproductive Problems Previous Pregnancies: Yes Musculoskeletal Problems Arthritis: Yes (knee) Endocrine Problems Diabetes Mellitus Type 1: No Diabetes Mellitus Type 2: No Other Problems Shingles: No Blood Transfusions: No Blood Transfusion Reaction: No Anesthesia Reactions: No MRSA: No Clostridium Difficile: No Cancer: No Subjective Visit Visit for: follow up visit, post op #2 and knee (LEFT ) Immunization / Flu Flu Vaccine in the Last 12 Months: No Flu Vaccine Exclusion Criteria: No Exclusion Criteria History of Present Illness Chief complaint: 4 WK L TKA Susan is a pleasant 63-year-old female with a prior right total knee replacement with significant left knee pain. She is doing well 6 weeks postop Personal History Red flag PMH: none BMI Counceling provided: Yes Pain Pain level (0-10): 8 Pain duration: COMES AND GOES Pain location: inside (medial), outside (lateral), anterior and posterior Pain quality: dull and aching Pain timing: increases with activity Associated signs & symptoms: none Ambulatory data Ambulatory device: none Treatments Improvement with previous injections: No Improvement with PT: No Improvement with NSAIDS: no Review of Systems Review of Systems: All systems negative unless otherwise noted in HPI.
[2025-05-24 11:20] VITALS: BP 118/73; PULSE 71; RESP 20; TEMP 36.2; O2SAT 96; BMI 39.0
--- NOTE | 2025-05-24 11:24 | XR_ITS ---
EXAMINATION: Bilateral knees 2 views Right lateral knee left lateral knee 2 views Bilateral axial knee single view TECHNIQUE: Bilateral AP knees standing single view, bilateral feet and knees standing single view flexion Standing right lateral knee left lateral knee 2 views Bilateral axial knee single view total 5 views Date and time: May 24, 2025, 1136 hours INDICATIONS: Bilateral knee replacements, left side 1 month ago right side 2 years ago FINDINGS: Moderate osteopenia. Bilateral total knee arthroplasties. Satisfactory alignment bilaterally with no loosening of the prosthetic components No patellar dislocation IMPRESSION: Bilateral total knee arthroplasties with satisfactory alignment
== END 2025-05-24 11:26 | disposition home or self-care (01) ==
LOC: HODSRG 11:02
PROVIDERS: PCP Nurse Practitioner Family; Referring Provider Nurse Practitioner Family; Supervising Provider Orthopaedic Surgery Adult Reconstructive Orthopaedic Surgery; Visit Provider Orthopaedic Surgery Adult Reconstructive Orthopaedic Surgery
DX: Z47.1 Aftercare following joint replacement surgery (principal); Z96.651 Presence of right artificial knee joint; M25.562 Pain in left knee; M17.12 Unilateral primary osteoarthritis, left knee; I10 Essential (primary) hypertension; E66.9 Obesity, unspecified; Z68.39 Body mass index [BMI] 39.0-39.9, adult
CPT/HCPCS: 73564; 99213; G0463

== ENCOUNTER 2025-05-30 11:30 | Outpatient (RCR) | payer MEDICAID, SELFPAY ==
--- NOTE | 2025-05-09 09:33 | PT.OIERPT ---
PT OP Initial Eval Patient Information Outpatient Physical Therapy Treatment Date: 05/09/25 Visit Reasons: LEFT TOTAL KNEE Medical Diagnosis: z96.652 Treatment Dx #1: Left Knee Mobility Deficits Treatment Dx #2: Left Knee Weakness Start of Care: 05/09/25 Date of Onset: 03/10/25 Smoking Status Smoking Status: Never smoker Initial Assessment Subjective: Pt is a 64 y/o female s/p Left TKA 03/10/25 due to severe knee OA. Pt still has pain (7/10) and has went from 2 pain meds to 1 pain meds. Pt recieved about 6 sessions of homehealth PT. Pt still has limitation with walking, standing, chores, balance, self care, cooking, cleaning, stairs, and recreational activities. Objective: Left Knee AROM: -14 deg to 85 deg Left Knee MMTs: grossly 3/5 Left Hip MMTs: grossly 3-/5 SLS: unable Gait Observation: antalgic gait with SPC Assessment: Pt demonstrate left knee mobility and strength deficits s/p TKA leading to difficulty with ADLs. Pt will benefit from physical therapy to increase ROM, strength, and work on ambulation. Short Term and [employer] Goals 1) Increase left knee flexion AROM to 110 deg in 12 wks to be able to perform squatting activities 2) Decrease knee pain to 2/10 in 12 wks to be able to stand more than 30 mins 3) Increase left knee MMTs grossly 4/5 in 12 wks to be able to perform chores 4) Increase left hip MMTs grossly to 4-/5 in 12 wks to be able to walk more than 30 mins 5) Indep with HEP Treatment Plan 1) Manual Therapy 2) Therapeutic Activities 3) Therapeutic Exercises 4) Modalities (ice, heat) 5) Balance Training 6) Gait Training Frequency and Duration: 2 x wk for 12 wks Certification Dates: 05/09/25 to 08/10/24 Procedure Charges OP PT Eval Mod Complex 30 minutes: Yes
--- NOTE | 2025-05-15 10:31 | PT.ODAYNRPT ---
PT Outpatient Daily Note OP Daily Note Outpatient Physical Therapy Treatment Date: 05/15/25 Visit Reasons: LEFT TOTAL KNEE Subjective: Pt's knee ache and feels stiff this morning. Objective: Left Knee Flexion AROM: 90 deg Assessment: slow improvement with knee flexion AROM. Pt had difficulty completing sitting knee flexion stretch due to pain. Post ice helped with pain and soreness Plan: Continue with PT Length of Time (minutes) of Treatment: 30 Minutes Procedure Charges Therapeutic Exercise 30 minutes: Yes
--- NOTE | 2025-05-18 12:53 | PT.ODAYNRPT ---
PT Outpatient Daily Note OP Daily Note Outpatient Physical Therapy Treatment Date: 05/18/25 Visit Reasons: LEFT TOTAL KNEE Subjective: Pt knee is stiff but has been able to bend more with less pain. Objective: Please see flow chart for list of ther ex performed Assessment: able to use sci fit today due to improve knee flexion ROM. Post ice helped with pain and soreness Plan: Continue with PT Length of Time (minutes) of Treatment: 30 Minutes Procedure Charges Therapeutic Exercise 30 minutes: Yes
--- NOTE | 2025-05-23 11:44 | PT.ODAYNRPT ---
PT Outpatient Daily Note OP Daily Note Outpatient Physical Therapy Treatment Date: 05/23/25 Visit Reasons: LEFT TOTAL KNEE Subjective: Pt's knee feels good. Pt notice improve knee fleixon AROM Objective: Left knee flexion AROM: 103 deg Assessment: continues to slowly progress with knee flexion AROM with less pain reported Plan: Continue with PT Length of Time (minutes) of Treatment: 30 Minutes Procedure Charges Therapeutic Exercise 30 minutes: Yes
--- NOTE | 2025-05-28 12:53 | PT.ODAYNRPT ---
PT Outpatient Daily Note OP Daily Note Outpatient Physical Therapy Treatment Date: 05/28/25 Visit Reasons: LEFT TOTAL KNEE Subjective: Pt's knee feels good. No concerns to report. Objective: Please see flow chart for list of ther ex performed Assessment: verbal cues given to correct side step and monster walk to engage glutes. Plan: Continue with PT Length of Time (minutes) of Treatment: 30 Minutes Procedure Charges Therapeutic Exercise 30 minutes: Yes
--- NOTE | 2025-05-30 13:38 | PT.ODAYNRPT ---
PT Outpatient Daily Note OP Daily Note Outpatient Physical Therapy Treatment Date: 05/30/25 Visit Reasons: LEFT TOTAL KNEE Subjective: Pt reports L knee is doing better, feels pain has improved. Objective: Please see flow sheet for ther ex list. Assessment: Pt instructed on step up exercise, performed with B FREDERIC. Plan: Continue with poC. Length of Time (minutes) of Treatment: 30 Minutes Procedure Charges Therapeutic Exercise 30 minutes: Yes
== END 2025-06-01 23:59 | disposition home or self-care (01) ==
LOC: CPTX 11:30
PROVIDERS: PCP Orthopaedic Surgery Adult Reconstructive Orthopaedic Surgery; Referring Provider Orthopaedic Surgery Adult Reconstructive Orthopaedic Surgery; Visit Provider Orthopaedic Surgery Adult Reconstructive Orthopaedic Surgery
DX: Z47.1 Aftercare following joint replacement surgery (principal); Z96.652 Presence of left artificial knee joint; M25.562 Pain in left knee; R53.1 Weakness; R26.2 Difficulty in walking, not elsewhere classified; R26.89 Other abnormalities of gait and mobility
CPT/HCPCS: 97110; 97162

== ENCOUNTER → 2025-06-13 | Outpatient (CLI) | payer MEDICAID, SELFPAY ==
--- NOTE | 2025-06-13 10:30 | XR_ITS ---
Examination: CT abdomen, without intravenous contrast. CT abdomen, with intravenous contrast. Sagittal and coronal 2-D reconstructions. Time of exam: June 13, 2025, 1210 hours INDICATIONS: Right upper abdominal pain beginning 1 week ago CTDI: vol (mGy) 31.9 DLP: (mGycm) 1275 Technique: Multiple 3.0 mm axial noncontrast images of the abdomen have been obtained. Multiple 3.0 mm axial images post administration 60 cc Isovue-370 intravenous contrast have been obtained. Sagittal and coronal 3-D reconstructions have been obtained. Low dose protocols were performed. One or more of the following dose reduction techniques were used; automated exposure control, adjustment of the mA and/or KV according to patient size, use of iterative reconstruction technique. Findings: No focal liver or splenic lesion Absent gallbladder No common bile duct stones No pancreatic mass No renal or ureteral calculi, no hydronephrosis Normal appendix No bowel obstruction Moderate osteopenia IMPRESSION: Absent gallbladder No common bile duct stones However, consider hepatobiliary sonography follow-up
== END | disposition home or self-care (01) ==
LOC: SCAT 10:17
PROVIDERS: PCP Obstetrics & Gynecology; Referring Provider Family Medicine; Visit Provider Family Medicine
DX: R10.11 Right upper quadrant pain (principal); Z90.49 Acquired absence of other specified parts of digestive tract
CPT/HCPCS: 74170; A4649; Q9967

== ENCOUNTER 2025-06-19 13:30 | Outpatient (RCR) | payer MEDICAID, SELFPAY ==
--- NOTE | 2025-06-05 12:04 | PT.ODAYNRPT ---
PT Outpatient Daily Note OP Daily Note Outpatient Physical Therapy Treatment Date: 06/05/25 Visit Reasons: left tka Subjective: Pt is having more knee than usual. Pt denies it's related to therapy or any change in activities. Pt has a follow up with MD and will discuss concern with the provider Objective: Please see flow chart for list of ther ex performed Assessment: regress patient back to supine exercises to allow patient to rest due to reported increase knee pain. Pt tolerate modified exercises with minimal pain Plan: Continue with PT Length of Time (minutes) of Treatment: 30 Minutes Procedure Charges Therapeutic Exercise 30 minutes: Yes
--- NOTE | 2025-06-08 15:22 | PT.ODAYNRPT ---
PT Outpatient Daily Note OP Daily Note Outpatient Physical Therapy Treatment Date: 06/08/25 Visit Reasons: left tka Subjective: Pt reports L knee is doing better, feels flexibility has improved. Objective: Please see flow sheet for ther ex list. Assessment: Focus on normalizing gait and improving ROM within pt tolerance. Plan: Continue with poC. Length of Time (minutes) of Treatment: 30 Minutes Procedure Charges Therapeutic Exercise 30 minutes: Yes
--- NOTE | 2025-06-13 14:37 | PT.ODAYNRPT ---
PT Outpatient Daily Note OP Daily Note Outpatient Physical Therapy Treatment Date: 06/13/25 Visit Reasons: left tka Subjective: Pt reports L knee ROM continues to improve. Objective: Please see flow sheet for ther ex list. Assessment: Performed PROM of L knee into flexion, minimal guarding allowing for increase range. Plan: Continue with poC. Length of Time (minutes) of Treatment: 30 Minutes Procedure Charges Therapeutic Exercise 30 minutes: Yes
--- NOTE | 2025-06-15 14:35 | PT.ODAYNRPT ---
PT Outpatient Daily Note OP Daily Note Outpatient Physical Therapy Treatment Date: 06/15/25 Visit Reasons: left tka Subjective: Pt reports knee is doing better. Pt shared that she is going to be leaving out [place]. Objective: Please see flow sheet for ther ex list. Assessment: Continued with focus on restoring ROM and functional mobility. Plan: Continue with poC. Length of Time (minutes) of Treatment: 30 Minutes Procedure Charges Therapeutic Exercise 30 minutes: Yes
--- NOTE | 2025-06-19 15:21 | PT.ODS1RPT ---
PT OP Progress/Discharge Note Date of Service: 06/19/25 Progress Note/DC Note Progress Note/Discharge Note: DC Note Patient Information Visit Reasons: left tka Medical Diagnosis: z96.652 Treatment Dx #1: Left Knee Mobility Deficits Treatment Dx #2: Left Knee Weakness Service Continue Service or Discharge: Discharge Discharge Date: 06/19/25 Status Subjective: Pt's knee is better. Pt has been able to stand, walk, cook, clean, and perform chores with less limitation. Pt will like to stop physical therapy due to heading out of country until Sep 2025. Objective: Left Knee AROM: -10 deg to 92 deg Left KNee MMTs: grossly 4-/5 Left Hip MMTs: grossly 3/5 SLS: 2 sec Assessment: Pt demonstrate functional left knee mobility and strength allowing her to start light ADLs, ambulate, and perform recreational activities with less limitation. Pt will be d/c from care per Pt's request due to heading out of country for several months. Pt was given HEP to continue and performed all exercises safely, thank you for your referrals. Plan: D/C home with HEP and follow up with MD FARMER Procedure Charges Therapeutic Exercise 30 minutes: Yes
== END 2025-07-01 23:59 | disposition home or self-care (01) ==
LOC: CPTX 13:30
PROVIDERS: PCP Orthopaedic Surgery Adult Reconstructive Orthopaedic Surgery; Referring Provider Orthopaedic Surgery Adult Reconstructive Orthopaedic Surgery; Visit Provider Orthopaedic Surgery Adult Reconstructive Orthopaedic Surgery
DX: Z47.1 Aftercare following joint replacement surgery (principal); Z96.652 Presence of left artificial knee joint; M25.562 Pain in left knee; R26.2 Difficulty in walking, not elsewhere classified; R26.89 Other abnormalities of gait and mobility; R53.1 Weakness
CPT/HCPCS: 97110